=== PATIENT | female | born 1985 | race Caucasian/White ===

== ENCOUNTER 2017-07-08 01:38 | Inpatient (IN) | payer OTHER, SELFPAY ==
[2017-07-08] VITALS (26 sets, daily range): BP systolic 105–137; BP diastolic 50–94; PULSE 87–103; RESP 16–18; TEMP 36.1–37.2; O2SAT 94–100; BMI 31.2
[2017-07-08] MEDS: Lactated Ringers 1,000 ML 999 ML IV (02:30)
[2017-07-08 02:46] LABS: Hematocrit 33.9 % (37-47); Mean Corp Hgb Conc 32.4 g/gl (32-36); Mean Corpuscular Volume 92.4 fL (81-99); Mean Platelet Vol. 10.3 fl (6.2-12.0); Platelet Count 173 K/mm3 (150-450); RBC Distribution Width SD 42.6 fl (35.1-43.9); Red Blood Count 3.67 M/mm3 (4.2-5.4); Scan Indicated on CBC? Y/N NO; White Blood Count 8.2 K/mm3 (4.4-11.0)
[2017-07-08 03:36] LABS: Bedside Glucose 86 mg/dL (70-110)
[2017-07-08] MEDS: Lactated Ringers 1,000 ML 150 ML IV (04:02)
[2017-07-08] MEDS: Sodium Citrate/Citric Acid 30 ML UDC PO (04:02)
--- NOTE | 2017-07-08 04:04 | PCM.HP.OB ---
History Date of Admission: 07/08/17 Final RIGO: 07/19/17 Gestational age: 38 Weeks and 3 Days History of this : GDM - insulin RH negative Pertinent Past Medical History: tonsillectomy Allergies No Known Allergies Allergy (Verified 07/08/17 02:28) Current Medications Acetaminophen (Tylenol) 325 - 650 mg PO Q4H PRN PRN PRN Reason: PAIN OR FEVER >100.4F Al Hydroxide/Mg Hydroxide (Mylanta Ii) 15 - 30 ml PO Q4H PRN PRN PRN Reason: INDIGESTION Citric Acid/Sodium Citrate (Bicitra) 30 ml PO UD PRN Citric Acid/Sodium Citrate (Bicitra) 30 ml PO UD [facility] Last Admin: 07/08/17 04:02 Dose: 30 ml Lactated Ringer's () 1,000 mls @ 150 mls/hr IV .Q6H40M [facility] Last Admin: 07/08/17 04:02 Dose: 150 mls/hr Nalbuphine HCl (Nubain) 5 - 10 mg IV Q3H PRN PRN PRN Reason: PAIN (4-10/10) Ondansetron HCl (Zofran) 4 mg IV Q8H PRN PRN PRN Reason: NAUSEA Promethazine HCl (Phenergan) 6.25 - 12.5 mg IV Q4H PRN PRN; Protocol PRN Reason: IF NAUSEA PERSISTS Sodium Chloride () 0 ml IV UD [facility] Smoking Status: Never smoker Alcohol: None Drug Use: none - 1 Number of Fetus(es): 1 Physical Exam General: Alert, Oriented x3 Abdomen: Soft, Non Tender, Non-Distended, Gravid Presentation: Breech - confirmed on US Cervix Dilation (cm): 3.5 - per private client advisor/Plan 31yo female in labor with breech fetus Admit to L&D Proceed with for breech and labor GDM - BS checked, peds aware Pre-op ancef Routine care
--- NOTE | 2017-07-08 04:09 | HP.PCM_ITS ---
History Date of Admission: 07/08/17 Final RIGO: 07/19/17 Gestational age: 38 Weeks and 3 Days History of this : GDM - insulin RH negative Pertinent Past Medical History: tonsillectomy Allergies No Known Allergies Allergy (Verified 07/08/17 02:28) Current Medications Acetaminophen (Tylenol) 325 - 650 mg PO Q4H PRN PRN PRN Reason: PAIN OR FEVER >100.4F Al Hydroxide/Mg Hydroxide (Mylanta Ii) 15 - 30 ml PO Q4H PRN PRN PRN Reason: INDIGESTION Citric Acid/Sodium Citrate (Bicitra) 30 ml PO UD PRN Citric Acid/Sodium Citrate (Bicitra) 30 ml PO UD [facility] Last Admin: 07/08/17 04:02 Dose: 30 ml Lactated Ringer's () 1,000 mls @ 150 mls/hr IV .Q6H40M [facility] Last Admin: 07/08/17 04:02 Dose: 150 mls/hr Nalbuphine HCl (Nubain) 5 - 10 mg IV Q3H PRN PRN PRN Reason: PAIN (4-10/10) Ondansetron HCl (Zofran) 4 mg IV Q8H PRN PRN PRN Reason: NAUSEA Promethazine HCl (Phenergan) 6.25 - 12.5 mg IV Q4H PRN PRN; Protocol PRN Reason: IF NAUSEA PERSISTS Sodium Chloride () 0 ml IV UD [facility] Smoking Status: Never smoker Alcohol: None Drug Use: none - 1 Number of Fetus(es): 1 Physical Exam General: Alert, Oriented x3 Abdomen: Soft, Non Tender, Non-Distended, Gravid Presentation: Breech - confirmed on US Cervix Dilation (cm): 3.5 - per clinical medical assistant/Plan 31yo female in labor with breech fetus Admit to L&D Proceed with for breech and labor GDM - BS checked, peds aware Pre-op ancef Routine care
[2017-07-08] MEDS: Cefazolin 2 GM in 0.9% Normal Saline 100 ML IV (04:18)
[2017-07-08] MEDS: Oxytocin 30 units/NS 500 ml 30 UNITS/500 ML IV.SOLN 167 UNITS IV (04:40)
[2017-07-08] MEDS: Ketorolac 30 MG/ML Syringe IV ×4 (05:00→23:16)
--- NOTE | 2017-07-08 05:32 | OP.PCM_ITS ---
Delivery Final RIGO: 07/19/17 Gestational age: 38 Weeks and 3 Days Indications: Patient presented with SROM and labor. She was confirmed breech on US. Indications for : Malpresentation Description of Procedure: Patient taken to OR where spinal anesthesia was placed. She was prepped and draped in normal sterile fashion in a dorsal lithotomy position with a leftward tilt. After ensuring adequacy of anesthesia the Pfannensteil skin incision was made and carried through to the underlying fascia with a bovie. The fascia was incised in the midline and carried laterally with the Art scissors. The rectus muscles were in the midline and the peritoneum was entered bluntly. The bladder flap was dissected down carefully with the Metzenbaum scissors and blunt dissection. The uterus was incised in a transverse fashion and then incision extended with cephalocaudad traction. The fetus was breech. The infants buttocks was elevated to the uterine incision. The was delivered carefully using typical breech maneuvers and fundal pressure. The 3VC cord was clamped and cut. The handed off to the waiting RN. The placenta was delivered w/ gentle traction and fundal massage. The uterus was exteriorized and cleared of all clots and debris. The uterine incision was closed with 1 vicryl suture in a running locked fashion. The bovie was used to further obtain further hemostasis of the uterine incision. A second imbricating layer of monocryl was placed. 2 additional figure of 8 sutures using 1-0 vicryl were placed to obtain excellent hemostasis. The uterus was returned to the peritoneal cavity. The pelvis was irrigated & then cleared of all clots and debris. The uterine incision was reexamined and found to be hemostatic. Some jarred was placed over the uterine incision and bladder flap due to the denuded areas. The parietal peritoneum was reapproximated with running 3-0 vicryl suture. The fascia was closed with looped PDS suture in a running standard fashion. The subcutaneous tissue was examined & any bleeding bovie cauterized. The subcutaneous tissue was reapproximated with plain gut suture. The skin was closed in a subcuticular fashion by the CHIEF SECURITY AND SAFETY OFFICER with me present in the labor and delivery suite. I performed the remainder of the procedure w/ assistance. Amniotic Membrane Rupture Type: Spontaneous Amniotic Fluid Description: Clear Placenta Disposition: [facility] Drain: Fernandez to straight drain Fluids Replaced: 1L Cord Entanglement: None Cord Vessel Description: 3 Vessels Esitmated Blood Loss (ml): 800ml Infant Gender: Female (1 minute): 8 (5 minute): 9 Delayed cord clamping: No Pre-op Antibiotic Given: Ancef 2 grams IV x1 Complications: None
[2017-07-08 05:51] LABS: Bedside Glucose 95 mg/dL (70-110)
[2017-07-08 14:21] LABS: Bedside Glucose 96 mg/dL (70-110)
--- NOTE | 2017-07-08 14:22 | NURSING ---
POC [facility] nurse nurse informed of results
[2017-07-08] MEDS: 0.9% Saline Lock 10 ML Syringe IV (17:28)
[2017-07-08] MEDS: Acetaminophen 500 MG Tablet 1000 MG PO (19:48)
[2017-07-09 02:15] VITALS: PULSE 98; RESP 18; O2SAT 95
[2017-07-09 03:20] VITALS: BP 110/61; PULSE 83; RESP 16; TEMP 36.6; O2SAT 99
[2017-07-09 04:00] VITALS: PULSE 83; RESP 16; O2SAT 98
[2017-07-09] MEDS: Ketorolac 30 MG/ML Syringe IV ×4 (05:59→22:06)
[2017-07-09 06:03] LABS: Hematocrit 31.8 % (37-47); Hemoglobin 10.5 g/dl (12.0-15.0); Mean Corpuscular Hgb 30.2 pg (27.0-32.0); Mean Corpuscular Volume 91.4 fL (81-99); Mean Platelet Vol. 9.4 fl (6.2-12.0); Platelet Count 124 K/mm3 (150-450); RBC Distribution Width CV 13.4 % (11.6-14.6); RBC Distribution Width SD 44.2 fl (35.1-43.9); Red Blood Count 3.48 M/mm3 (4.2-5.4); White Blood Count 11.9 K/mm3 (4.4-11.0)
[2017-07-09] MEDS: 0.9% Saline Lock 10 ML Syringe IV ×4 (06:08→22:06)
[2017-07-09 06:21] LABS: Scan Indicated on CBC? Y/N NO
--- NOTE | 2017-07-09 06:28 | NURSING ---
Dr. Greer called in to unit- orders for fasting blood sugar this AM.
[2017-07-09 06:35] LABS: Bedside Glucose 121 mg/dL (70-110)
--- NOTE | 2017-07-09 06:35 | NURSING ---
RN in room to do fasting glucose patient stated just ate two bites of cookie while waiting on breakfast. Result was 121.
--- NOTE | 2017-07-09 08:21 | PCM.PN.OB ---
Subjective: pain well controlled, average lochia - Physical Exam General: Alert, Cooperative, No apparent distress Abdomen: Soft, Distended - mildly, softly, Tender - appropriately Vital Signs Temp Pulse Resp BP Pulse Ox 97.9 F 83 16 110/61 98 07/09/17 03:20 07/09/17 04:00 07/09/17 04:00 07/09/17 03:20 07/09/17 04:00 Oxygen Flow Rate (L/min) 93 Oxygen Delivery Method Room Air Weight: 75.024 kg Body Mass Index (BMI) 31.2 Intake and Output for Last 24 Hours 07/07/17 07/08/17 07/09/17 23:59 23:59 23:59 Intake Total 2948 / 2948 1450 / 1450 Output Total 4100 / 4100 2100 / 2100 Balance -1152 / -1152 -650 / -650 Laboratory Tests Past 24 Hrs 07/09/17 05:50 WBC 11.9 H RBC 3.48 L Hgb 10.5 L Hct 31.8 L MCV 91.4 MCH 30.2 MCHC 33.0 RDW 13.4 RDW Differential 44.2 H Plt Count 124 L MPV 9.4 POC Glucose 07/09/17 07/08/17 06:32 14:18 POC Glucose 121 H 96 Medical Necessity - Tobacco Use Smoking Status: Never smoker Assessment/Plan POD#1 routine care
[2017-07-09 08:42] VITALS: BP 113/9; PULSE 88; RESP 16; TEMP 36.4; O2SAT 96
[2017-07-09 13:55] VITALS: BP 132/74; PULSE 96; RESP 18; TEMP 36.6; O2SAT 98
--- NOTE | 2017-07-09 14:00 | NURSING ---
Reviewed and agreed with student RN charting.
[2017-07-09] MEDS: Senna/Docusate Sodium 1 Tablet PO (14:22)
[2017-07-09] MEDS: oxyCODONE 5 MG Tablet PO (14:22)
[2017-07-09 19:45] VITALS: BP 129/73; PULSE 92; RESP 16; TEMP 36.7; O2SAT 98
[2017-07-10] MEDS: Acetaminophen 500 MG Tablet 1000 MG PO ×3 (01:17→21:22)
[2017-07-10 01:24] VITALS: BP 113/64; PULSE 86; RESP 17; TEMP 36.5; O2SAT 99
[2017-07-10] MEDS: Ibuprofen 600 MG Tablet PO ×2 (05:57→17:51)
--- NOTE | 2017-07-10 08:04 | PCM.PN.OB ---
Subjective: Pain controlled - Physical Exam General: Alert, Oriented x3 Abdomen: Soft, Non Tender, Non-Distended - ff mid & below umb; incision - bandage c/d/i Extremities: No Calf Tenderness Vital Signs Temp Pulse Resp BP Pulse Ox 97.7 F L 86 17 113/64 99 07/10/17 01:24 07/10/17 01:24 07/10/17 01:24 07/10/17 01:24 07/10/17 01:24 Oxygen Flow Rate (L/min) 93 Oxygen Delivery Method Room Air Weight: 165 lb 6.4 oz Body Mass Index (BMI) 31.2 Intake and Output for Last 24 Hours 07/08/17 07/09/17 07/10/17 23:59 23:59 23:59 Intake Total 2948 / 2948 1450 / 1450 Output Total 4100 / 4100 3300 / 3300 Balance -1152 / -1152 -1850 / -1850 Medical Necessity - Tobacco Use Smoking Status: Never smoker Assessment/Plan POD#2 Routine care GDM - check additional BS as FBS elevated yesterday Encouraged
--- NOTE | 2017-07-10 08:08 | DCINST_ITS ---
Discharge Diet: No Restrictions Discharge Activity: May not drive while taking narcotic pain medications., May Shower May resume sexual activity in: 4-6 weeks Weight Bearing Status: Weight bearing as tolerated Call your doctor if your incision/area has: Continuous Slow Oozing, Sudden Increased Bleeding, Increased Pain/ Swelling, Increased Redness, Foul Smelling Discharge, Swelling at the incision site Additional Instructions: If you experience any of the following, contact your healthcare provider. * Bleeding that soaks a pad every hour for 2 hours * Fever 100.4 or higher * Unrelieved incision or abdominal pain * Swelling, redness, discharge or bleeding from your incision or episiotomy site * Your incision begins to separate * Problems urinating (including inability to urinate or burning while urinating) . * Visual changes * Severe headache * Flu-like symptoms * Pain or redness in one of both of your breasts * Pain, warmth, tenderness or swelling in your legs, especially the calf area * Frequent nausea and vomiting * Symptoms of depression or anxiety If you experience any of the following, call 911 or go to the nearest Emergency Room. * Chest pain * Problems breathing * Seizure activity * Partial or complete paralysis of a body part, slurred speech, weakness or drooping of the face, or a sudden inability to walk or hold your balance Allergies/Adverse Reactions: Allergies No Known Allergies Allergy (Verified 07/08/17 02:28) Medications to take at Discharge Prenatabs FA 1 tab PO DAILY 07/08/17 Oxycodone HCl/Acetaminophen [Percocet 5/325] 1 tab PO Q6H PRN PRN 7 Days #28 tab 07/10/17 The following prescriptions were given: Oxycodone HCl/Acetaminophen [Percocet 5/325] 1 tab PO Q6H PRN PRN 7 Days #28 tab PRN Reason: Pain Follow-Up: Call to make an appointment with your doctor for an incision check in 1-2 weeks. You will also need a 6 week post- follow up appointment. Primary Care Physician: Giovanna Valle MD [Primary Care Provider] -
[2017-07-10 08:15] VITALS: BP 122/72; PULSE 75; RESP 18; TEMP 36.6; O2SAT 98
[2017-07-10 14:45] VITALS: BP 130/66; PULSE 73; RESP 18; TEMP 36.6; O2SAT 97
[2017-07-10 17:54] VITALS: BP 122/76
[2017-07-10 21:15] VITALS: BP 129/67; PULSE 78; RESP 16; TEMP 36.8; O2SAT 98
[2017-07-11 02:40] VITALS: BP 123/72; PULSE 74; RESP 18; TEMP 36.4; O2SAT 96
[2017-07-11] MEDS: Ibuprofen 600 MG Tablet PO (02:42)
[2017-07-11 05:16] LABS: Bedside Glucose 96 mg/dL (70-110)
[2017-07-11] MEDS: Acetaminophen 500 MG Tablet 1000 MG PO (07:47)
[2017-07-11] MEDS: Senna/Docusate Sodium 1 Tablet PO (07:53)
--- NOTE | 2017-07-11 09:03 | PN.OBGYN_ITS ---
Subjective: Patient ambulating around room reporting no issues today; desires discharge to home at this time. Objective: Nipples without cracks/blisters BL, breasts soft and filling Scant rubra lochia Incision dressing dry and intact, Abdomen NT x 4 quadrants - Physical Exam General: Alert, Oriented x3, Cooperative HEENT: Atraumatic, PERRLA, EOMI, Normocephalic Neck: Supple Lungs: Normal air movement Cardiovascular: Regular rate, Regular Rhythm Abdomen: Soft, Non Tender Extremities: No edema, Capillary Refill Less than 3 Seconds, No Calf Tenderness Skin: No rashes, No breakdown Musculoskeletal: No Tenderness to Palpation of Joints or Extremities Neurological: Cranial nerves II-XII grossly intact, Deep Tendon Reflexes 2+/4 and Symmetrical, Muscle tone normal Psych/Mental Status: Normal Affect, Appropriate, Alert and oriented to time, place, person, mood and affect Vital Signs Temp Pulse Resp BP Pulse Ox 97.5 F L 74 18 123/72 H 96 07/11/17 02:40 07/11/17 02:40 07/11/17 02:40 07/11/17 02:40 07/11/17 02:40 Oxygen Flow Rate (L/min) 93 Oxygen Delivery Method Room Air Weight: 165 lb 6.4 oz Body Mass Index (BMI) 31.2 Intake and Output for Last 24 Hours 07/09/17 07/10/17 07/11/17 23:59 23:59 23:59 Intake Total 1450 / 1450 Output Total 3300 / 3300 Balance -1850 / -1850 POC Glucose 07/11/17 05:06 POC Glucose 96 Medical Necessity - Tobacco Use Smoking Status: Never smoker Assessment/Plan A: 31 y/o POD #3 s/p LTCS for Breech Presentation in Labor, Normal PP Course P: 1) Discharge to home pending discharge 2) Anticipatory health teaching done - patient requests self removal of c- section bandage tomorrow. Instructions provided. 3) RTC in 1-2 weeks for incision check with [facility] Beatriz Andrews CNM
--- NOTE | 2017-07-11 09:03 | PCM.DC.SUM ---
Discharge Date and Diagnosis Date of Admission: 07/08/17 Date of Discharge: 07/11/17 - Primary Discharge Diagnosis Breech Presentation @ Term in Labor - Secondary Discharge Diagnosis Gestational Diabetes Hospital Course and Treatment Operations: - - Section Procedures: None Summary of Care Provided: The patient is a 31 year old F [] Discharge Diet: No Restrictions Discharge Activity: May not drive while taking narcotic pain medications., May Shower May resume sexual activity in: 4-6 weeks - For 6 week PP visit and 2 hour GTT , 2 weeks - Incision check Weight Bearing Status: Weight bearing as tolerated Call your doctor if your incision/area has: Continuous Slow Oozing, Sudden Increased Bleeding, Increased Pain/ Swelling, Increased Redness, Foul Smelling Discharge, Swelling at the incision site Call your doctor if you observe: Fever of 101 or Higher, Inability to urinate, Inability to have a bowel movement, Using more than one pad per hour, Calf discomfort, Uncontrolled pain Remove Dressing in (days):: 1 Cleanse incision/area with: Soap & Water Home Medications: Medications to take at Discharge Prenatabs FA 1 tab PO DAILY 07/08/17 Oxycodone HCl/Acetaminophen [Percocet 5/325] 1 tab PO Q6H PRN PRN 7 Days #28 tab 07/10/17 Following Prescrptions Were Given to Patient: Oxycodone HCl/Acetaminophen [Percocet 5/325] 1 tab PO Q6H PRN PRN 7 Days #28 tab PRN Reason: Pain Primary Care Physician: Giovanna Valle MD [Primary Care Provider] - Please Follow Up With: Db Greer When: 1-2 weeks Please Follow Up With: Db Greer When: 4-6 weeks Disposition: Home Patient Condition:: Good Medical Necessity - Tobacco Use Smoking Status: Never smoker Meaningful Use Info Meaningful Use Diagnoses (Choose all that apply): None applicable
[2017-07-11 09:08] VITALS: BP 130/79; PULSE 78; RESP 16; TEMP 36.4; O2SAT 98
[2017-07-11 11:50] VITALS: BP 126/74; PULSE 76; RESP 16; TEMP 36.6
== END 2017-07-11 11:55 | disposition home or self-care (01) | DRG 766 ==
PROVIDERS: Admitting Provider Obstetrics & Gynecology; Family Provider Family Medicine; PCP Family Medicine; Visit Provider Obstetrics & Gynecology
DX: O32.1XX0 Maternal care for breech presentation, not applicable or unspecified (principal); O24.424 Gestational diabetes mellitus in childbirth, insulin controlled; Z3A.38 38 weeks gestation of pregnancy; Z37.0 Single live birth
CPT/HCPCS: 36415; 59025; 59050; 82962; 85027; 86850; 86870; 86900; 99218; J7120; A4216; G0378; J2405

== ENCOUNTER 2020-10-21 09:34 | Inpatient (IN) | payer OTHER, SELFPAY ==
[2020-10-21] VITALS (20 sets, daily range): BP systolic 104–140; BP diastolic 53–78; PULSE 57–95; RESP 14–18; TEMP 36–36.9; O2SAT 95–100; BMI 32.3
[2020-10-21] MEDS: Lactated Ringers 1,000 ML 999 ML IV ×2 (09:50→22:25)
[2020-10-21 10:07] LABS: Absolute Lymphocyte Count 1.82 X10^3/uL (0.83-4.51); Absolute Neutrophil Count 5.9 X10^3/uL (2.0-7.7); Basophil# 0.02 X10^3/uL; Basophil% 0.2 % (0-1); Eosinophil# 0.07 X10^3/uL; Eosinophils% 0.8 % (0-5); Hematocrit 39.1 % (37-47); Lymphocyte # 1.82 X10^3/ul (0.83-4.51); Lymphocyte % 21.4 % (19-41); Mean Corp Hgb Conc 33.2 g/dL (32-36); Mean Corpuscular Hgb 31.1 pg (27.0-32.0); Mean Corpuscular Volume 93.5 fL (81-99); Mean Platelet Vol. 10.7 fl (6.2-12.0); Monocyte# 0.61 X10^3/uL; Monocyte% 7.2 % (0-10); NRBC Flagged by Analyzer 0 % (0-5); Neutrophil # 5.89 X10^3/uL (2.7-7.7); Neutrophil % 69.1 % (47-70); Platelet Count 164 K/mm3 (150-450); RBC Distribution Width CV 12.6 % (11.6-14.6); RBC Distribution Width SD 43.4 fl (35.1-43.9); Red Blood Count 4.18 M/mm3 (4.2-5.4); White Blood Count 8.5 K/mm3 (4.4-11.0)
[2020-10-21 10:10] LABS: Bedside Glucose 80 mg/dL (70-110)
[2020-10-21] MEDS: Acetaminophen 500 MG Tablet 1000 MG PO ×3 (10:20→22:05)
[2020-10-21] MEDS: Lactated Ringers 1,000 ML 150 ML IV (11:02)
[2020-10-21] MEDS: Sodium Citrate/Citric Acid 30 ML UDC PO (11:51)
[2020-10-21] MEDS: Cefazolin 2 GM in 0.9% Normal Saline 100 ML IV (11:52)
--- NOTE | 2020-10-21 11:55 | PCM.HP.OB ---
HPI - General General Date of Admission: 10/21/20 HPI Narrative SALENA WALTERS, is a 35 F who presents for repeat . Maternal Data Information Final RIGO: 10/27/20 Gestational age: 39&1 [facility] Medical History Gestational diabetes Home Medications Prenatabs FA 1 tab PO DAILY 07/08/17 [History Last Taken 10/20/20] insulin NPH human semi-syn 16 unit SUBCUT DAILY 10/21/20 [History Last Taken 10/20/20] Allergy/AdvReac Type Severity Reaction Status Date / Time No Known Allergies Allergy Verified 07/08/17 02:28 Surgical History (Updated 10/21/20 @ 11:[address] Db Greer MD) History of surgery Previous section Social History Smoking Status: Former smoker History Elective abortions Hx Para 1 Spontaneous abortions Hx # Term Pregnancies Ectopic pregnancies Hx # Pregnancies Multiple births # of living children Vital Signs Vital Signs Vital Signs: 10/21/20 10:12 Temperature 97.9 F Temperature Source Temporal Pulse Rate 82 Respiratory Rate 14 Blood Pressure 129/76 H Blood Pressure Mean 93 Blood Pressure Source Monitor Blood Pressure Position Semi-Fowlers Blood Pressure Location Left Arm Pulse Ox 98 Oxygen Delivery Method Room Air Weight Weight: 171 lb 1.259 oz Body Mass Index (BMI) 32.3 Physical Exam Const alert, oriented x3 and no apparent distress Chest inspection of chest normal Resp normal respiratory effort GI soft to palpation, non-tender and non-distended Inspection: gravid Labs Labs Labs: Blood Type A NEGATIVE Antibody Screen NEGATIVE Hct 39.1 % (37-47) Hgb 13.0 g/dL (12.0-15.0) Rhogam given: No See [facility] H&P Assessment & Plan (1) Previous delivery, antepartum: COMMENT: @ 39&1 PLAN: Admit to L&D Proceed with repeat - discussed R/B/A and informed consent signed COVID negative GDM - on bedtime NPH during & well controlled Routine care
--- NOTE | 2020-10-21 11:59 | EX.PCM.OBRPT ---
Maternal Data Information Final RIGO: 10/27/20 Gestational age: 39&1 Details Operative Information Date of Procedure: 10/21/20 Pre-Operative Diagnosis: (1) Prior section Post-Operative Diagnosis: Same Indications for : Repeat Elective Indications Narrative: The patient was taken to the operating room where spinal anesthesia was placed. 14ml (1%)lidocaine was injected into the skin to provide additional analgesia. She was prepped and draped in the dorsal supine position with a leftward tilt. A Pfannenstiel skin incision was made approximately 2 cm above the symphysis pubis and carried through to the underlying fascia with the scalpel. The fascia was incised incised in the midline and extended laterally with the Art scissors. The patient was feeling some pain so ketamine IV was given by anesthesia. This provided good pain relief. The rectus muscles were in the midline and the peritoneum was entered carefully and bluntly. The peritoneal incision was stretched and the bladder blade was inserted. Vesicouterine peritoneum was tented up, incised & then bladder flap created gently. The uterine incision was made in a low transverse fashion with the scalpel and extended superiorly and inferiorly with blunt dissection. The infant's head was brought to the incision in the flexed position and delivered without difficulty. The head was gently guided to allow delivery of the anterior and posterior shoulders. The body then delivered with fundal pressure in the standard fashion. The 3VC cord was clamped and cut in delayed fashion. The infant was handed off to the waiting pediatric immunologist. The placenta was delivered with fundal massage and gentle traction in the standard fashion. The uterus was exteriorized and cleared of clots and debris. The uterine incision was closed with #1 Vicryl suture in a running locked fashion. Monocryl suture was used in an imbricating fashion. The incision was examined and was found to be hemostatic. The uterus was returned to the abdominal cavity. After irrigating Jeana was placed over the uterine incision as some areas were denuded (but hemostatic). The rectus muscle was examined and any bleeding was Bovie cauterized. The fascia was closed with PDS suture in a running standard fashion. The subcutaneous tissue was examining and any bleeding was Bovie cauterized. The subcutaneous tissue was reapproximated with interrupted sutures. The skin was closed in a subcuticular fashion by the WATER AND SEWER SYSTEMS SUPERVISOR while I was present in the labor & delivery unit. The remainder of the procedure was performed by me with assistance. All sponge, lap, and needle counts were correct. The patient was taken to her room for recovery in a stable condition. Classification: Scheduled Procedure Type: low transverse brigadier #1: Jaqui Mclean Type of Anesthesia: Spinal Antibiotic Given: Ancef 2 grams IV x1 Drain: Fernandez to straight drain Estimated Blood Loss: 900ml Fluids Replaced: 1000ml Procedure Start Time: 12:31 Procedure Stop Time: 13:16 Findings Description of Procedure: Normal maternal uterus and adnexa Presentation: Positive for Vertex Amniotic Membrane Rupture Type: Artificial Amniotic Fluid Description: Clear Placental Delivery Description: Expressed Placenta Disposition: [facility] Cord Vessel Description: 3 Vessels Cord Entanglement: None Infant A Gender: Male (3315g) (1 minute): 8 (5 minute): 9 Delayed Cord Clamping: Yes Complications Complications: None
[2020-10-21] MEDS: Oxytocin 30 units/NS 500 ml 30 UNITS/500 ML IV.SOLN 167 UNITS IV (13:40)
[2020-10-21] MEDS: 0.9% Saline Lock 10 ML Syringe IV ×2 (14:13→20:08)
[2020-10-21] MEDS: Ketorolac 30 MG/ML Syringe IV ×2 (14:13→20:08)
[2020-10-21 15:01] LABS: Bedside Glucose 81 mg/dL (70-110)
[2020-10-21] MEDS: Lactated Ringers 1,000 ML 100 ML IV (16:33)
[2020-10-21 22:15] LABS: Bedside Glucose 139 mg/dL (70-110)
--- NOTE | 2020-10-21 23:45 | NURSING ---
pt had come to desk reporting pt shaking and asked this RN to come to room. vs and assessment completed; no change from previous assessment. pt was shaking when this RN entered but after discussion of hormone changes and pt assessment being negative pt was able to relax and shaking ceased. heating pad provided for pt c/o tense back and medicated pt for gas pain
[2020-10-22] VITALS (11 sets, daily range): BP systolic 115–142; BP diastolic 52–73; PULSE 84–94; RESP 16–18; TEMP 36.1–36.4; O2SAT 95–98
[2020-10-22] MEDS: Enoxaparin 40 MG/0.4 ML Syringe SC ×2 (01:04→22:34)
[2020-10-22] MEDS: 0.9% Saline Lock 10 ML Syringe IV ×2 (01:09→08:21)
[2020-10-22] MEDS: Ketorolac 30 MG/ML Syringe IV ×2 (01:09→08:20)
--- NOTE | 2020-10-22 03:35 | NURSING ---
this rn entered room and pt was getting up to brp with . this rn offered assistance and asked pt if she was feeling ok and she responded i feel like i'm going to pass out. this RN assisted pt onto toilet and pulled staff assistance cord. pt c/o gas pain and needing to void. other staff in room, cool wash cloth and ammonia salt offered. pt able to void and states feeling better. extra staff remaining in room until pt wheel chair assisted back to bed. vs and assessment wnl. offered pt snack and drink but pt declined. pt reports feeling better.
[2020-10-22] MEDS: Acetaminophen 500 MG Tablet 1000 MG PO ×4 (04:23→22:33)
[2020-10-22 04:32] LABS: Hemoglobin 9.9 g/dL (12.0-15.0); Mean Corpuscular Hgb 31.3 pg (27.0-32.0); Mean Corpuscular Volume 94.9 fL (81-99); Mean Platelet Vol. 9.9 fl (6.2-12.0); Platelet Count 103 K/mm3 (150-450); RBC Distribution Width CV 12.6 % (11.6-14.6); RBC Distribution Width SD 43.9 fl (35.1-43.9); Red Blood Count 3.16 M/mm3 (4.2-5.4); White Blood Count 8.8 K/mm3 (4.4-11.0)
[2020-10-22 05:55] LABS: Bedside Glucose 129 mg/dL (70-110)
--- NOTE | 2020-10-22 08:56 | PCM.PN.OB ---
Subjective Subjective Doing well per patient and nursing staff. Ambulating and taking PO without difficulty. Voiding and passing flatus. Pain increased and shoulder pain. Not passing gas but feeling stomach cramping/bowel pressure. , services for assistance. Denies headache, visual changes, chest pain, shortness of breath, leg pain or increased bleeding. Lochia normal.Would like discharge home today. Baby in special care nursery due to hypoglycemia. Objective Data Objective Data Vital Signs: Vital Signs Temp Pulse Resp BP Pulse Ox 97.4 F L 84 16 124/52 H 95 10/22/20 03:25 10/22/20 03:30 10/22/20 03:25 10/22/20 03:30 10/22/20 04:45 Oxygen Delivery Method Room Air Weight: 171 lb 1.259 oz Body Mass Index (BMI) 32.3 Intake & Output: Intake and Output for Last 24 Hours 10/20/20 10/21/20 10/22/20 23:59 23:59 23:59 Intake Total 3738.19 / 3738.19 190 / 190 Output Total 525 / 525 400 / 400 Balance 3213.19 / 3213.19 -210 / -210 Lab / Micro Data Result Diagrams: 10/22/20 04:28 Labs: Laboratory Results - last 24 hr 10/21/20 09:50: WBC 8.5, RBC 4.18 L, Hgb 13.0, Hct 39.1, MCV 93.5, MCH 31.1, MCHC 33.2, RDW Std Deviation 43.4, RDW Coeff of Ollie 12.6, Plt Count 164, MPV 10.7, Immature Gran % (Auto) 1.300 H, Neut % (Auto) 69.1, Lymph % (Auto) 21.4, [place] % (Auto) 7.2, Eos % (Auto) 0.8, Baso % (Auto) 0.2, Absolute Neuts (auto) 5.9, Absolute Lymphs (auto) 1.82, Nucleated RBC % 0 10/21/20 09:50: Blood Type A NEGATIVE, Antibody Screen TNP 10/21/20 09:50: Antibody Screen NEGATIVE 10/21/20 10:05: POC Glucose 80 10/21/20 14:34: POC Glucose 81 10/21/20 21:51: POC Glucose 139 H 10/22/20 04:28: WBC 8.8, RBC 3.16 L, Hgb 9.9 L, Hct 30.0 L, MCV 94.9, MCH 31.3, MCHC 33.0, RDW Std Deviation 43.9, RDW Coeff of Ollie 12.6, Plt Count 103 L, MPV 9.9 10/22/20 05:46: POC Glucose 129 H Micro: Microbiology 10/21/20 11:20 Mucosa - Nose SARS-CoV-2 Antigen (Rapid) - Final ROS Constitutional Constitutional: Reports systems reviewed and no addt'l complaints, except as documented; Denies headache(s) Eyes Eyes: Denies acute decrease in peripheral vision, blurry vision or change in vision ENT HEENT: Reports systems reviewed and no addt'l complaints, except as documented Cardiovascular Cardiovascular: Denies chest pain or dizziness Respiratory/Chest Respiratory/Chest: Denies cough, dyspnea, dyspnea on exertion, shortness of breath at rest or shortness of breath with exertion Gastrointestinal Gastrointestinal: Denies diarrhea, nausea or vomiting Musculoskeletal Musculoskeletal: Denies limited range of motion Integumentary Integumentary: Reports systems reviewed and no addt'l complaints, except as documented Neurologic Neurologic: Reports systems reviewed and no addt'l complaints, except as documented Psychiatric Psychiatric: Reports systems reviewed and no addt'l complaints, except as documented Endocrine Endocrinology: Reports systems reviewed and no addt'l complaints, except as documented Hematologic/Lymphatic Hematologic/Lymphatic: Reports systems reviewed and no addt'l complaints, except as documented Allergic/Immunologic Allergic/Immunologic: Reports systems reviewed and no addt'l complaints, except as documented Physical Exam Const alert and oriented x3 General Appearance: cooperative Orientation / Consciousness: awake, oriented to person, oriented to place and oriented to time Exam Limitations: no limitations HEENT normocephalic Head and Scalp: normal to inspection, normocephalic and atraumatic Face and Sinus: normal facial exam Eyes General Eye: normal appearance of both eyes Neck full ROM Chest Chest: symmetrical chest wall rise Resp normal respiratory effort and normal air movement Auscultation: clear to auscultation bilaterally Cardio regular rate, regular rhythm, S1 normal heart sound, S2 normal heart sound, no murmurs, no rub, no gallops and no clicks GI normal to inspection, nondistended, normoactive bowel sounds GI Narrative: appropriately tender. Fundus unable to be palpated due to distention and feels shifted to right and full bladder. Dressing dry and intact. appearance of the vagina normal Bladder / Kidney Exam: no CVA tenderness Back/Spine normal ROM Extremity normal to inspection and full ROM Extremity Narrative: Naomi's negative bilaterally Skin no rashes or lesions noted Neuro oriented x3, CN's II-XII intact bilaterally and moves all extremities Sensorium / Orientation: awake, alert and oriented to person Motor Exam: clonus absent Deep Tendon Reflexes: Rt Patellar (L4): 2+ and Lt Patellar (L4): 2+ Assessment & Plan (1) Delivery by section: (2) GDM, class A2: PLAN: 1. Routine postoperative and instructions 2. Repeat CBC in am, Asymptomatic 3. BP stable 4. Up out of bed 5. camacho out and urinating 6. Pain management. Repeat fundal exam after urination. 7. No further BS, stable
--- NOTE | 2020-10-22 10:57 | NURSING ---
Pt in SCN at this time
[2020-10-22] MEDS: Senna/Docusate Sodium 1 Tablet PO (11:21)
[2020-10-22] MEDS: Ibuprofen 600 MG Tablet PO ×2 (14:35→20:12)
[2020-10-23 01:21] VITALS: BP 114/55; PULSE 82; RESP 18
[2020-10-23] MEDS: Ibuprofen 600 MG Tablet PO ×3 (01:25→14:41)
[2020-10-23] MEDS: Acetaminophen 500 MG Tablet 1000 MG PO ×2 (04:25→10:52)
[2020-10-23 08:30] VITALS: BP 120/63; PULSE 95; RESP 16; TEMP 36.4; O2SAT 96
--- NOTE | 2020-10-23 10:10 | PN.OBGYN_ITS ---
Subjective Subjective Doing well per patient and nursing staff. Ambulating and taking PO without difficulty. Voiding and passing flatus. Pain controlled. , services for assistance. Denies headache, visual changes, chest pain, shortness of breath, leg pain or increased bleeding. Lochia normal. Planning discharge home today as will be discharged from special care. Objective Data Objective Data Vital Signs: Vital Signs Temp Pulse Resp BP Pulse Ox 97 F L 82 18 114/55 L 98 10/22/20 20:05 10/23/20 01:21 10/23/20 01:21 10/23/20 01:21 10/22/20 20:05 Oxygen Delivery Method Room Air Weight: 171 lb 1.259 oz Body Mass Index (BMI) 32.3 Intake & Output: Intake and Output for Last 24 Hours 10/21/20 10/22/20 10/23/20 23:59 23:59 23:59 Intake Total 3738.19 / 3738.19 190 / 190 Output Total 525 / 525 400 / 400 Balance 3213.19 / 3213.19 -210 / -210 Lab / Micro Data Result Diagrams: 10/22/20 04:28 Micro: Microbiology 10/21/20 11:20 Mucosa - Nose SARS-CoV-2 Antigen (Rapid) - Final ROS Constitutional Constitutional: Reports systems reviewed and no addt'l complaints, except as documented; Denies headache(s) Eyes Eyes: Denies acute decrease in peripheral vision, blurry vision or change in vision ENT HEENT: Reports systems reviewed and no addt'l complaints, except as documented Cardiovascular Cardiovascular: Denies chest pain or dizziness Respiratory/Chest Respiratory/Chest: Denies cough, dyspnea, dyspnea on exertion, shortness of breath at rest or shortness of breath with exertion Gastrointestinal Gastrointestinal: Denies abdominal pain, diarrhea, nausea or vomiting Genitourinary Genitourinary: Denies abdominal discomfort Musculoskeletal Musculoskeletal: Denies limited range of motion Integumentary Integumentary: Reports systems reviewed and no addt'l complaints, except as documented Neurologic Neurologic: Reports systems reviewed and no addt'l complaints, except as documented Psychiatric Psychiatric: Reports systems reviewed and no addt'l complaints, except as docume nted Endocrine Endocrinology: Reports systems reviewed and no addt'l complaints, except as documented Hematologic/Lymphatic Hematologic/Lymphatic: Reports systems reviewed and no addt'l complaints, except as documented Allergic/Immunologic Allergic/Immunologic: Reports systems reviewed and no addt'l complaints, except as documented Physical Exam Const alert and oriented x3 General Appearance: cooperative Orientation / Consciousness: awake, oriented to person, oriented to place and oriented to time Exam Limitations: no limitations HEENT normocephalic Head and Scalp: normal to inspection, normocephalic and atraumatic Face and Sinus: normal facial exam Eyes General Eye: normal appearance of both eyes Neck full ROM Chest Chest: symmetrical chest wall rise Resp normal respiratory effort and normal air movement Auscultation: clear to auscultation bilaterally Cardio regular rate, regular rhythm, S1 normal heart sound, S2 normal heart sound, no murmurs, no rub, no gallops and no clicks GI normal to inspection, nondistended, normoactive bowel sounds and non-tender GI Narrative: Appropriately tender, fundus firm 3 below U Bladder / Kidney Exam: no CVA tenderness Back/Spine normal ROM Extremity normal to inspection and full ROM Extremity Narrative: Naomi's negative bilaterally Skin no rashes or lesions noted Neuro oriented x3, CN's II-XII intact bilaterally and moves all extremities Sensorium / Orientation: awake, alert and oriented to person Motor Exam: clonus absent Deep Tendon Reflexes: Rt Patellar (L4): 2+ and Lt Patellar (L4): 2+ Assessment & Plan (1) GDM, class A2: (2) Delivery by section: (3) Acute blood loss as cause of postoperative anemia: PLAN: 1. Routine postoperative and instructions 2. Repeat CBC today, ferrous sulfate 325mg M-W-F for acute blood loss anemia. Asymptomatic 3. BP stable 4. Oxycodone for pain 5. Follow up in 1 week for incision check 6. D/C home
--- NOTE | 2020-10-23 10:13 | PCM.DC.SUM ---
Providers Date of Admission: 10/21/20 Primary Care Physician: Dr. Giovanna Valle MD Reason For Visit: REPEAT C SECTION Diagnosis Discharge Diagnosis (1) GDM, class A2: Status: Acute Code(s): O24.419 - Gestational diabetes mellitus in , unspecified control (2) Delivery by section: Status: Acute (3) Acute blood loss as cause of postoperative anemia: Status: Acute Code(s): D62 - Acute posthemorrhagic anemia Medications at Discharge Home Medications Prenatabs FA 1 tab PO DAILY 07/08/17 insulin NPH human semi-syn 16 unit SUBCUT DAILY 10/21/20 acetaminophen 1,000 mg PO Q6H #0 tab 10/23/20 ibuprofen 600 mg PO Q6H #30 tab 10/23/20 oxycodone 5 - 10 mg PO Q6H 7 Days #30 tab 10/23/20 sennosides-docusate sodium [Stool Softener-Stimulant Laxat] 1 - 2 tab PO DAILY #30 tab 10/23/20 Hospital Course Operations section Procedures None Summary of Care Provided Hospital Course: Presented on 10/21/20 for repeat LTCS by . GDM class A2. Course uncomplicated. Acute blood loss anemia. Discharge home on POD #2 Weight / BMI Weight Weight: 171 lb 1.259 oz Body Mass Index (BMI) 32.3 ABG / Lab / Microbiology Data Result Diagrams: 10/22/20 04:28 Microbiology: Microbiology 10/21/20 11:20 Mucosa - Nose SARS-CoV-2 Antigen (Rapid) - Final Meaningful Use Info Meaningful Use Diagnoses (Choose all that apply): None applicable Discharge Plan Admission Admit Date/Time: 10/21/20 09:34 Primary Reason for Your Visit: Repeat LTCS Attending Provider: Db Greer Primary Care Provider: Giovanna Valle Instructions Patient Instructions: After a , : Caring for Yourself Discharge Orders/Prescriptions Prescriptions: New acetaminophen 500 mg Tablet 1,000 mg PO Q6H Qty: 0 RF: 0 sennosides-docusate sodium [Stool Softener-Stimulant Laxat] 8.6-50 mg Tablet 1 - 2 tab PO DAILY Qty: 30 RF: 0 ibuprofen 600 mg Tablet 600 mg PO Q6H Qty: 30 RF: 0 oxycodone 5 mg Tablet 5 - 10 mg PO Q6H 7 Days Qty: 30 RF: 0 Continued Prenatabs FA 1 tab PO DAILY RF: 0 No Action insulin NPH human semi-syn 100 unit/mL Cartridge 16 unit SUBCUT DAILY RF: 0 Referrals / Follow Up: Giovanna Valle MD [Primary Care Provider] - Db Greer MD [STAFF PHYSICIAN] - Disposition Disposition (needs filled in before D/C Order can be placed): Home, Self Care
[2020-10-23 11:05] LABS: Absolute Lymphocyte Count 1.56 X10^3/uL (0.83-4.51); Absolute Neutrophil Count 9.2 X10^3/uL (2.0-7.7); Basophil# 0.02 X10^3/uL; Basophil% 0.2 % (0-1); Eosinophil# 0.16 X10^3/uL; Eosinophils% 1.4 % (0-5); Hematocrit 29.4 % (37-47); Hemoglobin 9.5 g/dL (12.0-15.0); Lymphocyte # 1.56 X10^3/ul (0.83-4.51); Lymphocyte % 13.4 % (19-41); Mean Corp Hgb Conc 32.3 g/dL (32-36); Mean Corpuscular Hgb 30.9 pg (27.0-32.0); Mean Corpuscular Volume 95.8 fL (81-99); Mean Platelet Vol. 9.8 fl (6.2-12.0); Monocyte# 0.58 X10^3/uL; NRBC Flagged by Analyzer 0 % (0-5); Neutrophil # 9.23 X10^3/uL (2.7-7.7); Platelet Count 150 K/mm3 (150-450); RBC Distribution Width SD 44.5 fl (35.1-43.9); Red Blood Count 3.07 M/mm3 (4.2-5.4); White Blood Count 11.7 K/mm3 (4.4-11.0)
[2020-10-23] MEDS: Senna/Docusate Sodium 1 Tablet PO (12:11)
[2020-10-23 13:45] VITALS: BP 126/64; PULSE 85; RESP 16; TEMP 36.3; O2SAT 96
--- NOTE | 2020-10-23 16:17 | NURSING ---
Ramon CHILDRESS called and updated on Hgb 9.5- orders for patient to get OTC ferrous sulfate 325 mg to take daily sunday/sunday/sunday. Patient agreeable to plan and verbalizes understanding.
== END 2020-10-23 16:50 | disposition home or self-care (01) | DRG 787 ==
PROVIDERS: Advanced Practice Midwife; Admitting Provider Obstetrics & Gynecology; PCP Family Medicine; Referring Provider Obstetrics & Gynecology; Visit Provider Obstetrics & Gynecology
PROC: 10D00Z1 Extraction of Products of Conception, Low, Open Approach (ICD-10-PCS; CPT 59514; principal; 2020-10-21 11:45)
DX: O82 Encounter for cesarean delivery without indication (principal); D62 Acute posthemorrhagic anemia; Z3A.00 Weeks of gestation of pregnancy not specified; Z37.0 Single live birth; O24.424 Gestational diabetes mellitus in childbirth, insulin controlled; O99.02 Anemia complicating childbirth
CPT/HCPCS: 82962; 85025; 85027; 86850; 86900; 86901; 87426; 99218; J7120; A4216; G0378; J2405